=== PATIENT | male | born 1985 | race Two or more races ===

== ENCOUNTER → 2022-01-28 | Outpatient (CLI) | payer OTHER, BC ==
[2016-07-18 22:32] VITALS: BP 135/85
--- NOTE | 2022-01-28 16:43 | RAD ---
XR SHOULDER_LEFT 2+ VIEWS History: Reason: PER PT OLD INJURY, HAVING LROM PAIN OFF/ON x2WKS / Spl. Instructions: / History: Technique: 3 views left shoulder Comparison: None. Findings: Ossifications in the region of the distal left clavicle relate to prior trauma. No dislocation. No ac josé manuel fracture. Impression: 1. No acute osseous abnormality. Electronically signed by: Brandin Lopez DO (01/28/2022 4:41 PM) [id number]
== END ==
LOC: RAD 11:17
PROVIDERS: ATTEND Physician Assistant Medical
DX: M25.512 Pain in left shoulder (principal)
CPT/HCPCS: 73030